=== PATIENT | female | born 1935 | race Caucasian/White ===

== ENCOUNTER 2016-09-11 10:34 | Day surgery (SDC) | payer MEDICARE ==
[2016-09-11] VITALS (9 sets, daily range): BP systolic 103–151; BP diastolic 42–76; PULSE 60–77; RESP 6–20; O2SAT 92–96
[~2016-09-11] VITALS: Ht 152.4 cm; Wt 86.7 kg
[~2016-09-11 10:34] MED LIST: ALBU18HF INH; ALBU2.5V4 INHALATION; ALEN70TA2 PO; CALC-1051 PO; CYCL10TA9 PO; ESCI10TA52 PO; FEBU40TA PO; FLUT1DIS5 IH; FURO-129 PO; GABA100C PO; LISI10TA PO; Lactated Ringer's 1,000 ML IV SCH; MULT-1018 PO; OMEP40CA36 PO; POTA10TA12 PO; TIOT18CA3 IH; WARF6TAB6 PO; [UNRECOGNIZED DRUG - CODE]
[2016-09-11] MEDS ORDERED: Propofol 10,000 mCg/mL 20 mL Inj ONE (10:35)
[2016-09-11] MEDS ORDERED: Dexamethasone 4 mg/mL Inj ONE (10:35)
[2016-09-11] MEDS ORDERED: fentaNYL-PF 50 mCg/mL 2 mL Inj ONE (10:35)
[2016-09-11] MEDS ORDERED: Ondansetron 2 mg/mL 2 mL Inj ONE (10:35)
[2016-09-11] MEDS ORDERED: Lactated Ringer's 1,000 ML IV ONE (11:33)
[2016-09-11] MEDS ORDERED: HYDROcodone-APAP 5-325 mg Tablet PO PRN (14:05)
[2016-09-11] MEDS ORDERED: Lidocaine 1%-Epi 1:100,000 20 mL Inj NERVEBLOCK ONE (14:21)
[2016-09-11] MEDS ORDERED: Lactated Ringer's 500 ML IV PRN (14:26)
[2016-09-11] MEDS ORDERED: Lactated Ringer's 1,000 ML IV SCH (14:26)
[2016-09-11] MEDS ORDERED: Phenylephrine 10,000 mCg/mL Inj IVPUSH PRN (14:30)
[2016-09-11] MEDS ORDERED: MetoCLOpramide 5 mg/mL 2 mL Inj IVPUSH PRN (14:30)
[2016-09-11] MEDS ORDERED: EPHEDrine Sulfate 50 mg/mL Inj IVPUSH PRN (14:30)
[2016-09-11] MEDS ORDERED: HYDROmorphone 1 mg/mL Inj IVPUSH PRN (14:30)
[2016-09-11] MEDS ORDERED: Ondansetron 2 mg/mL 2 mL Inj IVPUSH PRN (14:30)
[2016-09-11] MEDS ORDERED: fentaNYL-PF 50 mCg/mL 2 mL Inj IVPUSH PRN (14:30)
[2016-09-11] MEDS ORDERED: Dexamethasone 4 mg/mL Inj IVPUSH PRN (14:30)
--- NOTE | 2016-09-12 04:42 | OP ---
[address] [address] OPERATIVE REPORT PATIENT: CRISTIAN ISAACS : 1935 MR#: [id number] ADMIT: 09/11/2016 JOB ID: [id number] DATE OF SURGERY: 09/11/2016 PREOPERATIVE DIAGNOSIS(ES): Left wrist versus ganglion. POSTOPERATIVE DIAGNOSIS(ES): Left wrist ulnar ganglion. PROCEDURES: Excision of left wrist ganglion. SURGEON: Compa Denny D.O. ANESTHESIA: General. HISTORY: The patient is pleasant 80-year-old female who had a longstanding history of a large left ulnar sided wrist mass. I discussed with the patient that it was likely a ganglion as it did transilluminate and had characteristics of a ganglion. As the mass was progressively enlarging she opted to have this excised. She understood the risks include, but not limited to, neurovascular injury, tendon injury, infection, failure to resolve the mass, recurrence, stiffness, persistent pain which may require further intervention. The patient had all questions answered. Consent was signed and placed in chart. PROCEDURE IN DETAIL: The patient was brought to the operative suite and placed supine on the operating table. Surgical time-out was performed. Everyone in the room was in agreement. After appropriate anesthesia was obtained, a left upper arm tourniquet was applied and the left upper extremity was prepped and draped in a sterile fashion. Left upper extremity was then exsanguinated and tourniquet inflated to 250 mmHg. A longitudinal incision was made along the ulnar aspect of the wrist overlying the mass. Dissection was carried down to a ganglion. The ganglion was freed up from the surrounding soft tissues taking care to protect any dorsal ulnar sensory nerve branches. The ganglion was dissected down to its stalk and excised in its entirety. Copious irrigation was then performed, followed by closure of the skin with a running 5-0 nylon. The patient was then placed in a well-padded well-molded volar resting splint. ESTIMATED BLOOD LOSS: Less than 1 cc. COMPLICATIONS: None. DISPOSITION: The patient tolerated the procedure well. Anesthesia was reversed and the patient was transferred back to recovery. SPECIMENS: Left ulnar wrist ganglion that was disposed of. POSTOPERATIVE PLAN: The patient follow up in my office in two weeks. We will remove the patient's sutures as well as a splint and start working on range of motion and scar mobilization at that time.
--- NOTE | 2016-09-12 09:41 | PCM.HPANE ---
Patient Data Surgeon Admitting Provider: Attending Provider:Compa Denny DO Primary Care Physician:Melissa Cortez Other Provider:Caesar Sampson Anesthesia Reason for Visit Left Wrist Ganglion Ht/WT & BMI Height (Feet): 5 Weight (Kilograms): 86.72 Body Mass Index 37.00 Allergies Coded Allergies: Penicillins (Verified Allergy, Severe, 01/02/09) Past Anesthesia History Anesthesia History: Denies:: Abnormal Airway, Anesthesia Reactions, Difficult Intubation, Fam Anesthesia Reaction Diabetes History Hx Diabetes?: No (hgb A1c 5.9 on 08/2016) MRSA MRSA: No Medications Blood Thinner: Coumadin Hypertension Medication: Yes Home Meds Incl Beta Libzeth: No Reported Medications Warfarin Sodium 6 Mg Tablet6 Mg PO DAILY 30 Days 09/08/16 Febuxostat (Uloric)40 Mg Fqonyu01 Mg PO DAILY 09/08/16 Tiotropium [place] (Spiriva)18 Mcg Cap.w.dev18 Mcg IH DAILY #1 PKG Ref 0 09/08/16 [slow-mag] No Conflict Check71.5 Mg DAILY 09/08/16 Potassium Chloride ER 10 Meq Ayheeq42 Meq PO DAILY Ref 0 TAKE WITH FOOD 09/08/16 Omeprazole 40 Mg Capsule.dr40 Mg PO BID Ref 0 09/08/16 Multivitamin (Multi Vitamin Daily)1 Each Tablet1 Each PO DAILY 30 Days Ref 0 09/08/16 Lisinopril 10 Mg Uelqnb21 Mg PO DAILY 30 Days Ref 0 09/08/16 Furosemide (Lasix)20 Mg Wsalen23 Mg PO DAILY 30 Days Ref 0 09/08/16 Gabapentin (Neurontin)100 Mg Fgozofs973-350 Mg PO HS PRN For Pain Ref 0 09/08/16 Alendronate Sodium (Fosamax)70 Mg Nxxjjb78 Mg PO WEEKLY 30 Days Ref 0 09/08/16 Escitalopram Oxalate 10 Mg Dlhphl04 Mg PO DAILY #30 TABLET Ref 0 09/08/16 Cyclobenzaprine 10 Mg Zzybot12 Mg PO HS PRN Spasm Ref 0 09/08/16 Calcium Carbonate/Vitamin D3 (Calcium 500-Vit D3 600 Tablet)500 Mg-600 Tablet1 Each PO DAILY 09/08/16 Albuterol Sulfate (Ventolin HFA Inhaler)200 Puff/18 Gm Inhaler2 Puff INH Q4 PRN For Wheezing #1 INHALER Ref 0 09/08/16 Albuterol Neb Soln 2.5 Mg/3 Ml Vial.neb2.5 Mg INHALATION Q4H PRN For Shortness of Breath Ref 0 09/08/16 Fluticasone/Salmeterol (Advair 500-50 Diskus)1 Each Disk.w.dev1 Puff IH BID #1 DISK Ref 0 09/08/16 Discontinued Reported Medications Flutic/Salmet-Expunged Drug, Do Not Renew! (Advair 500/50-Expunged Drug, Do Not Renew!)60 Puff Disk60 Puff IH DAILY 01/02/10 Tiotropium Br-Expunged Drug, Do Not Renew! (Spiriva-Expunged Drug, Do Not Renew! )18 Mcg/Puff Pack Daily 01/02/10 [albturol ih] No Conflict Check Q3-4H Prn 01/02/10 History History of ENT Problems?: No HEENT History: Positive for:: Cataracts (bilateral ) Hearing Problem Denies:: Abnormal Airway Difficult Intubation Dysphagia Glaucoma Sinus Problem Denture Type: Full- Upper Full- Lower Teeth Condition: Within Normal Limits Hx of Heart Problems?: Yes Cardiovascular History: Positive for:: Hypertension Thrombophlebitis (PE ) Denies:: AICD Chest Pain Heart Murmur Irregular Heartbeat Pacemaker Hx of Respiratory Problem?: Yes Respiratory History: Positive for:: Asthma Dyspnea Use of C-PAP Machine Use of Inhalers / NEBS Denies:: COPD Chest Surgery Emphysema Hemoptysis Oxygen Administration Pneumonia Tuberculosis Hx Neurologic Problems?: Yes Neurological History: Positive for:: Headaches Denies:: Alzheimer's Disease CVA Dementia Dizziness Multiple Sclerosis Parkinson's Disease Seizures Hx of GI Problems?: No Hx of Problems?: No Genitourinary History: Denies:: Kidney Stones Urinary Tract Infection Female Hx: Positive for:: Problems with Breasts? (partial bilateral mastectomies 2002) Denies:: Currently (hysterectomy) Endometriosis Pelvic Inflammatory Skin History: Denies:: History Skin Disorders? Pressure Ulcers Hx Musculoskeletal Problems?: Yes Musculoskeletal History: Positive for:: Back Injury (hx of injections) Fibromyalgia Musculoskeletal Trauma (left wrist ganglion current admission problem) Osteoarthritis (right shoulder) Denies:: Degenerative Joint Joint Replacement Myasthenia Gravis Systemic Lupus Hx of Psycho/Social Problems?: No Psycho Social History: Denies:: Anxiety Bipolar Disorder Hx Depression Suicide Attempt Hx Surgeries?: Yes (hysterectomy, reema mastectomies) Hx Any Other Health Problems?: Yes Other History: Positive for:: Cancer (breast) Denies:: Hospitalization Thyroid Disease History Blood Transfusions: Positive for:: Accept Blood Products? Denies:: Blood Transfuse Reaction Blood Transfusions Hx Diabetes: No (hgb A1c 5.9 on 08/2016) Hx Alcohol Use: NoHx Substance Use: NoHave You Smoked inLast 12 mo: No Stop/Bang S-Snoring: Do You Snore Loudly: No T-Tired: feel tired, fatigued: Yes O-Obsered: Observed not breath: No P-Blood Pressure: treated: Yes B- Body Mass Index > 35 kg/m2: Yes A- Age over 50: Yes N- Neck Large Circumference: No G- Gender Male: No SARABJIT Total Score: 4 Risk Assessment Category Category 1A: Patient has history of documented sleep apnea, and HAS NOT received any narcotic, sedative or anesthesia administration during this stay. Category 1B: Patient has history of documented sleep apnea, and HAS received any narcotic , sedative or anesthesia administration during this stay Category 2: Patient has SUSPECTED Obstructive Sleep Apnea, and HAS received any narcotic , sedative or anesthesia administration during this stay. Category 3: Patient has SUSPECTED Obstructive Sleep Apnea and HAS NOT received narcotic, sedative or anesthesia administration during this stay. Category 4: Outpatient in Procedural Areas with known sleep apnea or who screen positive for High Risk via the STOP/BANG questionnaire. Exam Exam General Appearance: Alert, Oriented X3, Cooperative, No Acute Distress HEENT/AIRWAY: MP 2 Lungs: Clear to Auscultation Heart: Exam Unremarkable Plan Impression Patient chart reviewed, patient interviewed and anesthestic plan with risks, benefits, and alternatives discussed, and informed consent obtained. ASA Physical Status: ASA2 Mod Systemic Disease Anesthetic Plan: GA Bene/Risks/Altern/Consents: Yes HP Complete Prior to Induction: Yes Hunter Wiley MD Sep 11, 2016 08:44
--- NOTE | 2016-09-12 09:43 | PCM.ANEP1 ---
Post Anesthesia PACU Phase 1 Assessment Anesthetic Administered: GA Level of Alertness: Awake, talking RODRIGUEZ's with Equal Strength: Yes Pain: No Nausea or Vomiting: No CV Function & Hydration Stable: Yes Airway Device: Oxygen Delivery: Room Air Lungs: Clear to Auscultation Dermatome Level: Full Sensation PACU Phase 2 Assessment Complications: No Patient Instructions Provided: N/A Hunter Wiley MD Sep 12, 2016 09:43
== END 2016-09-11 23:59 | disposition home or self-care (01) ==
LOC: SAS 10:34
PROVIDERS: ATTEND Orthopaedic Surgery
PROC: 0RBP0ZZ Excision of Left Wrist Joint, Open Approach (ICD-10-PCS; principal; 2016-09-11 12:15)
DX: M67.432 Ganglion, left wrist (principal); G47.33 Obstructive sleep apnea (adult) (pediatric); J44.9 Chronic obstructive pulmonary disease, unspecified; M79.7 Fibromyalgia; J45.909 Unspecified asthma, uncomplicated; I10 Essential (primary) hypertension; Z86.711 Personal history of pulmonary embolism; Z79.01 Long term (current) use of anticoagulants; Z85.3 Personal history of malignant neoplasm of breast
CPT/HCPCS: 25111; J1100; J2405; J3010; J7120

== ENCOUNTER 2016-10-18 14:49 | Emergency (ER) | payer MEDICARE ==
[~2016-10-18] VITALS: Ht 154.9 cm; Wt 79.5 kg
[~2016-10-18 14:49] MED LIST changes: -Lactated Ringer's 1,000 ML IV SCH
[2016-10-18 14:51] VITALS: BP 115/61; PULSE 54; RESP 18; O2SAT 95
--- NOTE | 2016-10-18 15:09 | ED.REPORT ---
HPI-NVD Date of Service Oct 18, 2016 ED Provider: Dr. Estevez Pt is a 81 year old female with a hx of HTN who presents to the ED with concerns for nausea, vomiting and diarrhea for the past three weeks. She reports that she has had extensive work-ups for these symptoms, including a CT scan and stool studies, with no conclusive findings. Pt states that she has had no symptomatic relief with any medications that she has been prescribed. She reports that she has been unable to eat for the last day, and last vomited last night. She denies noticing any blood in her emesis or diarrhea, or any other concerning symptoms. She denies any recent antibiotics, or ever having experienced symptoms like these in the past. Nursing Notes Stated Complaint: DIARRHEA,VOMITING,DEHYDRATION Chief Complaint: Female Abdominal Pain Nursing Notes Reviewed: Yes Allergies: Coded Allergies: Penicillins (Verified Allergy, Severe, 10/18/16) Scheduled ([slow-mag]) 71.5 MG DAILY Alendronate Sodium (Fosamax) 70 Mg Tablet 70 MG PO WEEKLY Calcium Carbonate/Vitamin D3 (Calcium 500-Vit D3 600 Tablet) 500 Mg-600 Tablet 1 EACH PO DAILY Escitalopram Oxalate (Escitalopram Oxalate) 10 Mg Tablet 10 MG PO DAILY Febuxostat (Uloric) 40 Mg Tablet 40 MG PO DAILY Fluticasone/Salmeterol (Advair 500-50 Diskus) 1 Each Disk.w.dev 1 PUFF IH BID Furosemide (Lasix) 20 Mg Tablet 20 MG PO DAILY Lisinopril (Lisinopril) 10 Mg Tablet 10 MG PO DAILY Multivitamin (Multi Vitamin Daily) 1 Each Tablet 1 EACH PO DAILY Omeprazole (Omeprazole) 40 Mg Capsule.dr 40 MG PO BID Potassium Chloride ER (Potassium Chloride ER) 10 Meq Tablet 10 MEQ PO DAILY TAKE WITH FOOD Tiotropium [place] (Spiriva) 18 Mcg Cap.w.dev 18 MCG IH DAILY Warfarin Sodium (Warfarin Sodium) 6 Mg Tablet 6 MG PO DAILY Scheduled PRN Albuterol Neb Soln (Albuterol Neb Soln) 2.5 Mg/3 Ml Vial.neb 2.5 MG INHALATION Q4H PRN PRN For Shortness of Breath Albuterol Sulfate (Ventolin HFA Inhaler) 200 Puff/18 Gm Inhaler 2 PUFF INH Q4 PRN PRN For Wheezing Cyclobenzaprine (Cyclobenzaprine) 10 Mg Tablet 20 MG PO HS PRN PRN Spasm Gabapentin (Neurontin) 100 Mg Capsule 200-400 MG PO HS PRN PRN For Pain General Time Seen by MD: 15:08 Chief Complaint Nausea, Vomiting, Diarrhea Hx Obtained From: Patient Arrived By: Walk-in Onset Occurred: More than a week ago... (3 weeks) Symptom Duration: Since onset Location: : Diffuse Severity: Current: Mild Severity: Maximum: Moderate Similar Sx Previous: Yes Past Medical History Past Medical History Reports: Hypertension Ambulatory Status Independent Review of Systems Constitutional: Denies: Chills, Fever, Malaise, Weakness - generalized GI: Reports: Abdominal pain, Diarrhea, Nausea, Vomiting, Denies: Constipation Skin: Denies Diaphoresis, Denies Swelling Neurologic: Denies: Abnormal movement, Change LOC, Dizziness, Headache, Syncope , Weakness Complete sys rev & neg: except as marked. Physical Exam Initial Vital Signs Vital Signs (First) Date Time Temp Pulse Resp B/P Pulse Ox O2 Delivery O2 Flow Rate FiO2 10/18/16 14:51 37.0 54 18 115/61 95 Room Air Initial VS: Reviewed Head / Eyes: Atraumatic, Normocephalic, PERRL ENT: Mucous membranes moist, Conjunctiva normal, No scleral icterus Neck: Supple, Non-tender, Full range of motion Respiratory: Breath sounds normal, Clear to auscultation, No respiratory distress Cardiovascular: Regular rate & rhythm, Heart sounds normal, Intact distal pulses Skin: Warm, Dry, No cyanosis Neurologic: Alert, Oriented, Nonfocal General/Constitutional: Awake, Alert, Well appearing, Cooperative Abdomen: Soft Interpretation & Diagnostics Lab Results Interpretation Result Diagram: 10/18/16 1525 10/18/16 1525 Test 10/18/16 15:25 10/18/16 17:00 White Blood Count 6.5th/mm3 (3.8-10.1) Red Blood Count 4.35mil/mm3 (3.90-5.20) Hemoglobin 13.7g/dL (12.0-15.6) Hematocrit 39.5% (35.0-46.0) Mean Corpuscular Volume 90.8fL (81-100) Mean Corpuscular Hemoglobin 31.5pg (27.0-35.0) Mean Corpuscular Hemoglobin Concent 34.7% (32.0-37.0) Red Cell Distribution Width 14.0% (12.3-15.4) Platelet Count 161bil/L (150-400) Neutrophils (%) (Auto) 73.3% (40-74) Lymphocytes (%) (Auto) 17.1% (14-46) Monocytes (%) (Auto) 8.3% (4-12) Eosinophils (%) (Auto) 0.8% (0-5) Basophils (%) (Auto) 0.2% (0-3) Sodium Level 129mEq/L (134-144) Potassium Level 3.7mEq/L (3.5-5.2) Chloride Level 98mEq/L (97-108) Carbon Dioxide Level 17mmol/L (18-29) Blood Urea Nitrogen 13mg/dL (8-27) Creatinine 0.88mg/dL (0.57-1.00) Estimat Glomerular Filtration Rate 89mL/min (>59) Glucose Level 137mg/dL (60-99) Calcium Level 7.8mg/dL (8.5-10.1) Magnesium Level 1.5mg/dL (1.6-2.6) Total Bilirubin 0.5mg/dL (0.0-1.2) Aspartate Amino Transf (AST/SGOT) 26U/L (0-50) Alanine Aminotransferase (ALT/SGPT) 22U/L (0-32) Alkaline Phosphatase 57U/L (25-165) Total Protein 6.1g/dL (6.4-8.4) Albumin 3.8g/dL (3.4-5.0) Lipase 23U/L (13-60) Hold Newell Top Tube Received (Received) Hold Urine Received (Received) Lab Results Interpretation: Abd CT 10/08/2016: IMPRESSION: 1. No acute intra-abdominal findings. The appendix is not visualized; however there are no ancillary findings to suggest acute appendicitis. 2. Hepatic steatosis. 3. Arterial atherosclerosis. 4. Sclerotic appearance of the bilateral pubic bones at the symphysis pubis. The significance of this finding is unclear. Although this may be related to degenerative changes, infection or bony metastasis could be considered in the differential. No prior comparisons are available to determine the acuity of this finding. If further characterization is warranted, consider non-emergent bone scan or MRI of the pelvis with and without contrast. Dictated by: Jane Kan M.D. on 10/08/2016 at 16:27 Negative stool PCR Re-Eval/Medical Decision Med Decision/Clinical Course PCR bio fire test of the stool a few days ago is negative for all pathogens. No significant dehydration here today. I recommend follow up with PCP next week to discuss further evaluation. Imodium as needed. Source of Hx: Old records Re-Evaluation/Progress : Time of Eval: 17:47 Re-Evaluation/Progress Note: Pt is rechecked and informed of her lab results and the plan to discharge her at this time. She understands and agrees, all questions are addressed. Counseled Regarding: Diagnosis, Lab results, When/why to return to ED Discharge & Departure Impression: Primary Impression: Chronic diarrhea Additional Impression: Mild dehydration Disposition: Home Discharge Condition All VS Reviewed: Yes Condition: Stable Patient Instructions: Chronic Diarrhea (ED) Additional Instructions: No dangerous condition is discovered. You do have a moderate degree of dehydration. I recommend oral fluids frequently throughout the day. Use Imodium (loperamide) 2 mg with every diarrheal stool up to 16 mg of Imodium daily. Follow-up with primary care early next week to arrange gastroenterology follow up. Referrals: Melissa Cortez (PCP) Silas Attestation Portions of this note were transcribed by Ritika Rosales. I, Dr. Estevez personally performed the history, physical exam and medical decision-making; I reviewed and confirmed the accuracy of the information in the transcribed note. Signed by: Silas Lu, 10/18/2016 17:47 copies to: Melissa Cortez Kirk H MD Oct 18, 2016 15:09 NASRIN ROSALES Oct 18, 2016 15:16
[2016-10-18] MEDS ORDERED: 0.9% Sodium Chloride 1,000 ML IV ONE (15:12)
[2016-10-18] MEDS ORDERED: Ondansetron 2 mg/mL 2 mL Inj IVPUSH PRN (15:15)
[2016-10-18 16:09] LABS: BASOPHILS % (AUTO) 0.2 % (0-3); EOSINOPHILS % (AUTO) 0.8 % (0-5); MONOCYTES % (AUTO) 8.3 % (4-12); Mean Corpuscular Hemoglobin 31.5 pg (27.0-35.0); Mean Corpuscular Volume 90.8 fL (81-100); NEUTROPHILS % (AUTO) 73.3 % (40-74); Platelet Count 161 bil/L (150-400)
[2016-10-18 16:11] VITALS: BP 121/68; PULSE 52; RESP 15; O2SAT 95
[2016-10-18 16:18] LABS: Magnesium 1.5 mg/dL (1.6-2.6)
[2016-10-18 16:55] VITALS: BP 150/73; PULSE 55; O2SAT 96
[2016-10-18 16:56] VITALS: BP 137/69; PULSE 65; O2SAT 97
[2016-10-18] MEDS ORDERED: LOPE2CAP PO (18:24)
[2016-10-18 18:29] VITALS: BP 137/69; PULSE 65; RESP 15; O2SAT 97
== END 2016-10-18 18:33 | disposition home or self-care (01) ==
LOC: SED 14:49
DX: R19.7 Diarrhea, unspecified (principal); E86.0 Dehydration; I10 Essential (primary) hypertension; Z88.0 Allergy status to penicillin; Z79.01 Long term (current) use of anticoagulants
CPT/HCPCS: 36415; 80053; 83690; 83735; 85025; 96360; 99284; J7030

== ENCOUNTER 2016-10-28 14:23 | Emergency (ER) | payer MEDICARE ==
[~2016-10-28] VITALS: Ht 154.9 cm; Wt 79.5 kg
[~2016-10-28 14:23] MED LIST changes: +LOPE2CAP PO
[2016-10-28 14:31] VITALS: BP 185/62; PULSE 57; RESP 15; O2SAT 91
[2016-10-28] MEDS ORDERED: Ondansetron 2 mg/mL 2 mL Inj IVPUSH PRN (14:50)
--- NOTE | 2016-10-28 14:57 | ED.REPORT ---
HPI-Trauma Minor / Fall Date of Service Oct 28, 2016 ED Provider: MohitBj Omero NORMAN Pt is a 81 y/o female anticoagulated on Warfarin w/ a hx of congenital coagulopathy, HTN, CHF, presenting to the ED due to head injury which occurred 2 days ago. The patient was standing on a step stool trying to put something on her fridge and the stool fell out from under her causing her to fall and hit her head on the stove. After the incident she experienced headache, dizziness, and quickly resolved vision changes. She was seen by a family member right after the incident who recommended she come to the ED although she did not see it to be necessary. She went to an INR clinic today and her INR was 2.2 or 2.3. The staff at the INR clinic told her to come to the ED for evaluation of her head injury. Her symptoms at current time are headache, pressure behind the eye , and diffuse neck pain (worse on R lateral). Pt denies any change in upper extremity numbness, speech or vision changes currently, chest pain, abdominal pain. She has coincidentally been having diarrhea for the past 4 weeks which has been worked up previously. Nursing Notes Stated Complaint: FELL, HIT HEAD/ON COUMADIN Chief Complaint: Head, Face, Neck Trauma Nursing Notes Reviewed: Yes Allergies: Coded Allergies: Penicillins (Verified Allergy, Severe, 10/18/16) Scheduled ([slow-mag]) 71.5 MG DAILY Alendronate Sodium (Fosamax) 70 Mg Tablet 70 MG PO WEEKLY Calcium Carbonate/Vitamin D3 (Calcium 500-Vit D3 600 Tablet) 500 Mg-600 Tablet 1 EACH PO DAILY Escitalopram Oxalate (Escitalopram Oxalate) 10 Mg Tablet 10 MG PO DAILY Febuxostat (Uloric) 40 Mg Tablet 40 MG PO DAILY Fluticasone/Salmeterol (Advair 500-50 Diskus) 1 Each Disk.w.dev 1 PUFF IH BID Furosemide (Lasix) 20 Mg Tablet 20 MG PO DAILY Lisinopril (Lisinopril) 10 Mg Tablet 10 MG PO DAILY Multivitamin (Multi Vitamin Daily) 1 Each Tablet 1 EACH PO DAILY Omeprazole (Omeprazole) 40 Mg Capsule.dr 40 MG PO BID Potassium Chloride ER (Potassium Chloride ER) 10 Meq Tablet 10 MEQ PO DAILY TAKE WITH FOOD Tiotropium [place] (Spiriva) 18 Mcg Cap.w.dev 18 MCG IH DAILY Warfarin Sodium (Warfarin Sodium) 6 Mg Tablet 6 MG PO DAILY Scheduled PRN Albuterol Neb Soln (Albuterol Neb Soln) 2.5 Mg/3 Ml Vial.neb 2.5 MG INHALATION Q4H PRN PRN For Shortness of Breath Albuterol Sulfate (Ventolin HFA Inhaler) 200 Puff/18 Gm Inhaler 2 PUFF INH Q4 PRN PRN For Wheezing Cyclobenzaprine (Cyclobenzaprine) 10 Mg Tablet 20 MG PO HS PRN PRN Spasm Gabapentin (Neurontin) 100 Mg Capsule 200-400 MG PO HS PRN PRN For Pain Loperamide (Loperamide) 2 Mg Capsule 2 MG PO DIRECTED PRN PRN For Diarrhea or Loose Stool Take 2 milligrams with each diarrheal stool. Maximum dose per day 16 mg. 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 Cardiovascular: Denies: Chest pain GI: Denies: Abdominal pain, Nausea, Vomiting Physical Exam Initial Vital Signs Vital Signs (First) Date Time Temp Pulse Resp B/P Pulse Ox O2 Delivery O2 Flow Rate FiO2 10/28/16 14:31 36 57 15 185/62 91 Room Air Initial VS: Reviewed, Vital signs abnormal General/Constitutional: Awake, Alert, No acute distress, Well appearing, Cooperative, Not toxic appearing Trauma - Neck Specific: Positive: Immobilized - C Collar Mild tenderness of C-spine Head / Eyes: Normocephalic, PERRL Soft tissue swelling over the left occiput ENT: Atraumatic, Airway patent, Mucous membranes moist Respiratory / Chest: Breath sounds NL, Breath sounds = bilat, No respiratory distress, No rales, No rhonchi, No wheezing Cardiovascular: Regular rhythm, Heart sounds NL, No murmurs Heart Rate / Rhythm: Positive: Bradycardia (mild) Abdomen: Atraumatic, Soft, Non-tender Back: Full range of motion, Painless range of motion, No midline vertebral tend Upper Extremity / MS: Atraumatic, Full range of motion, No deformity, Neurologic intact, Vascular intact Lower Extremity / Pelvis / MS: No deformity, Neurologic intact, Vascular intact Mild tenderness over left greater trochanter No foreshortening or external rotation Skin: Warm, Dry, Intact Neurologic: Oriented X3, Speech NL, No motor deficits, No sensory deficits, CN II - XII intact, Cerebellar NL, Memory NL Psychiatric: Affect NL, Mood NL Interpretation & Diagnostics Lab Results Interpretation Result Diagram: 10/28/16 1520 10/28/16 1520 Test 10/28/16 15:20 White Blood Count 5.0th/mm3 (3.8-10.1) Red Blood Count 4.14mil/mm3 (3.90-5.20) Hemoglobin 13.1g/dL (12.0-15.6) Hematocrit 38.4% (35.0-46.0) Mean Corpuscular Volume 92.8fL (81-100) Mean Corpuscular Hemoglobin 31.6pg (27.0-35.0) Mean Corpuscular Hemoglobin Concent 34.1% (32.0-37.0) Red Cell Distribution Width 14.8% (12.3-15.4) Platelet Count 161bil/L (150-400) Neutrophils (%) (Auto) 64.8% (40-74) Lymphocytes (%) (Auto) 24.6% (14-46) Monocytes (%) (Auto) 9.0% (4-12) Eosinophils (%) (Auto) 1.2% (0-5) Basophils (%) (Auto) 0.2% (0-3) Prothrombin Time 21.8sec (8.1-12.5) Prothromb Time International Ratio 2.01ratio Activated Partial Thromboplast Time 31.2sec (22.8-33.0) Sodium Level 139mEq/L (134-144) Potassium Level 3.7mEq/L (3.5-5.2) Chloride Level 106mEq/L (97-108) Carbon Dioxide Level 19mmol/L (18-29) Blood Urea Nitrogen 17mg/dL (8-27) Creatinine 0.90mg/dL (0.57-1.00) Estimat Glomerular Filtration Rate 87mL/min (>59) Glucose Level 96mg/dL (60-99) Calcium Level 8.8mg/dL (8.5-10.1) Total Bilirubin 0.3mg/dL (0.0-1.2) Aspartate Amino Transf (AST/SGOT) 23U/L (0-50) Alanine Aminotransferase (ALT/SGPT) 19U/L (0-32) Alkaline Phosphatase 56U/L (25-165) Troponin T < 0.010ug/L (0.0-0.011) Total Protein 6.5g/dL (6.4-8.4) Albumin 3.9g/dL (3.4-5.0) ECG Interpretation ECG Interpretation: Sinus rhythm rate 51 Inverted T wave in lead III No prior available for comparison Time: 15:15 Interpreted by: ED physician Normal ECG Interpretation: No acute ischemic changes X-Ray Chest Interpretation Chest Xray Interpretation: IMPRESSION: Negative chest. No acute cardiopulmonary process is evident. Dictated by: Raymundo Armijo M.D. on 10/28/2016 at 14:30 Approved by: Raymundo Armijo M.D. on 10/28/2016 at 14:31 View: Portable, 1 view Interpretation / Wet Read by: Interpret - Radiologist X-Ray Interpretation Xray Interpretation: IMPRESSION: 1. No acute fracture of the left hip. 2. Subtle sclerosis of the superior left femoral head may be degenerative. However, this does raise the suspicion for early avascular necrosis. Please consider obtaining MRI of the left hip for further evaluation. This may be performed on a nonemergent basis. Dictated by: Raymundo Armijo M.D. on 10/28/2016 at 14:32 Approved by: Raymundo Armijo M.D. on 10/28/2016 at 14:34 X-Ray Ordered: Pelvis, Hip left Interpretation / Wet Read by: Interpret - Radiologist CT Head Interpretation IMPRESSION: Normal for age, no trauma found. No intracranial hemorrhage identified. Dictated by: Rey Echavarria M.D. on 10/28/2016 at 15:54 Approved by: Rey Echavarria M.D. on 10/28/2016 at 15:54 Study: Head CT no contrast Interpretation / Wet Read by: Interpret - Radiologist CT C-Spine Interpretation IMPRESSION: No trauma found. Chronic moderate degenerative disc disease over C5-6 and C6-7 with associated mild/moderate spinal stenosis at that level. No epidural or subdural hemorrhage within the thecal sac is seen. Dictated by: Rey Echavarria M.D. on 10/28/2016 at 15:54 Approved by: Rey Echavarria M.D. on 10/28/2016 at 15:56 Study type: CT no contrast Interpretation / Wet Read by: Interpret - Radiologist Re-Eval/Medical Decision Med Decision/Clinical Course 81-year-old female who is anticoagulated on warfarin presents 2 days after a fall where she hit her head with a significant blow and has been having some concerning symptoms, including dizziness, vision changes, and headache, as well as left hip pain and neck pain. Luckily here her imaging appeared unremarkable. I discussed with her that her symptoms are likely related to a concussion and that if they worsen she needs to return immediately for further/ repeat evaluation. I also discussed the signs and symptoms of concussion and she understands the importance of follow-up with her PCP later this week. Source of Hx: Old records Re-Evaluation/Progress : Time of Eval: 16:55 Patient Status: Condition improved Evaluation: Mental status normal, Neurologic nonfocal Re-Evaluation/Progress Note: Pt rechecked. Informed pt of plan for discharge. Pt understands and agrees with plan for discharge. F/U instructions and RTER warnings given. All questions addressed. Counseled Regarding: Diagnosis, Lab results, Need for follow-up, When/why to return to ED Discharge & Departure Impression: Primary Impression: Head injury Encounter type: initial encounter Qualified Code: S09.90XA - Unspecified injury of head, initial encounter Additional Impressions: Anticoagulated on warfarin Fall Encounter type: initial encounter Qualified Code: W19.XXXA - Unspecified fall, initial encounter Concussion Encounter type: initial encounter Loss of consciousness presence/duration: without LOC Qualified Code: S06.0X0A - Concussion without loss of consciousness, initial encounter Bony sclerosis Disposition: Home Discharge Condition All VS Reviewed: Yes Condition: Stable Patient Instructions: Concussion (ED), Head Injury (ED) Additional Instructions: The head and neck CT scans were reassuring. No signs of fracture or bleeding. The chest and pelvis x-ray showed no sign of fracture. You do have some sclerosis of the left hip. Return to the emergency department if you experience any new or worsening symptoms. Follow-up with your primary care doctor in 1-2 weeks for a recheck. Referrals: Melissa Cortez (PCP) Scribe Attestation Portions of this note were transcribed by Clemente Diaz. I, Dr. Rueda personally performed the history, physical exam and medical decision-making; I reviewed and confirmed the accuracy of the information in the transcribed note. copies to: Melissa Cortez Gary R DO Oct 28, 2016 14:57 CLEMENTE DIAZ Oct 28, 2016 15:04
[2016-10-28 15:24] LABS: BASOPHILS % (AUTO) 0.2 % (0-3); EOSINOPHILS % (AUTO) 1.2 % (0-5); Mean Corpuscular Hemoglobin 31.6 pg (27.0-35.0); Mean Corpuscular Volume 92.8 fL (81-100); NEUTROPHILS % (AUTO) 64.8 % (40-74); Platelet Count 161 bil/L (150-400)
--- NOTE | 2016-10-28 15:33 | DRSVH ---
PROCEDURE: X-RAY CHEST ONE VIEW, PORTABLE ([id number]) INDICATIONS: fall TECHNIQUE: One view of the chest was acquired. COMPARISON: [facility], CR, XR CHEST 2VW, 09/10/2015, 13:47. FINDINGS: Surgical changes and devices: Postoperative changes are present overlying the right breast. Lungs and pleura: The aeration of the lungs appears to be within normal limits. No focal consolidati on, effusion, or pneumothorax is identified. There may be scarring within the lung apices and costop hrenic angles. Mediastinum: Mediastinal contours appear normal. Heart size is normal. There is aortic atheroscler osis. Bones and chest wall: No suspicious bony lesions. No definite displaced rib fractures are appreciat ed. Overlying soft tissues appear unremarkable. IMPRESSION: Negative chest. No acute cardiopulmonary process is evident. Dictated by: Raymundo Armijo M.D. on 10/28/2016 at 14:30 Approved by: Raymundo Armijo M.D. on 10/28/2016 at 14:31
--- NOTE | 2016-10-28 15:36 | DRSVH ---
PROCEDURE: X-RAY PELVIS W/LAT HIP (LT) ([id number]) INDICATIONS: fall, L hip pain TECHNIQUE: AP pelvis with lateral view(s) of the left hip(s). COMPARISON: [facility], CT, CT ABD PELVIS W CON, 10/08/2016, 16:11. FINDINGS: Bones: No displaced hip fracture is evident. Subtle subarticular sclerosis along the superior margin of the femoral head is present, which is much better appreciated on the CT dated 10/08/16. Articular surface offset is identified. Mild to moderate degenerative changes are noted involving the bilatera l hips, pubis symphysis, sacroiliac joints, and lower lumbar spine. Soft tissues: The visualized bowel gas pattern is normal. Subcutaneous calcifications overlying the bilateral gluteal regions are noted. Clips are seen within the right upper medial thigh region. Sc attered vascular calcifications within the pelvis are noted. IMPRESSION: 1. No acute fracture of the left hip. 2. Subtle sclerosis of the superior left femoral head may be degenerative. However, this does raise the suspicion for early avascular necrosis. Please consider obtaining MRI of the left hip for furth er evaluation. This may be performed on a nonemergent basis. Dictated by: Raymundo Armijo M.D. on 10/28/2016 at 14:32 Approved by: Raymundo Armijo M.D. on 10/28/2016 at 14:34
[2016-10-28 15:38] LABS: INR 2.01 ratio
[2016-10-28 15:45] LABS: TROPONIN T < 0.010 ug/L (0.0-0.011)
--- NOTE | 2016-10-28 15:55 | DRSVH ---
PROCEDURE: CT BRAIN WITHOUT CONTRAST ([id number]) INDICATIONS: fall, hit head, on warfarin TECHNIQUE: Noncontrast 4.5 mm thick angled axial sections acquired from the foramen magnum to the vertex, with c oronal reformats. COMPARISON: [facility], CT, BRAIN W/O CONTRAST, 01/09/2011, 15:10. FINDINGS: Image quality: Excellent. CSF spaces: Basal cisterns are patent. No extra-axial fluid collections. The ventricles are symmet jesse in size and shape. Brain: No intracranial bleeds or masses. There is cerebral volume loss for age, with resultant vent ricular and sulcal prominence. There are periventricular and deep white matter chronic small vessel ischemic changes. There is intracranial internal carotid artery atherosclerosis. Skull and face: Calvarium and visualized facial bones appear intact, without suspicious lesions. Sinuses: Visualized sinuses and mastoids are clear. IMPRESSION: Normal for age, no trauma found. No intracranial hemorrhage identified. Dictated by: Rey Echavarria M.D. on 10/28/2016 at 15:54 Approved by: Rey Echavarria M.D. on 10/28/2016 at 15:54
--- NOTE | 2016-10-28 15:57 | DRSVH ---
PROCEDURE: CT CERVICAL SPINE WITHOUT CONTRAST ([id number]) INDICATIONS: fall, hit head, neck pain TECHNIQUE: Noncontrast 3 mm thick sections acquired from the skull base to the T4 level. Sagittal and coronal r eformats were then constructed. For radiation dose reduction, the following was used: automated exp osure control, adjustment of mA and/or kV according to patient size. COMPARISON: None. FINDINGS: Image quality: Excellent. Bones: No fractures or dislocations. Visualized superior ribs are intact. There is a moderate degr ee of degenerative disc disease and chronic posterior disc bulging at C5-6 and C6-7. No traumatic shaffer bluxation is suspected. Soft tissues: Prevertebral soft tissues are normal in thickness. No paravertebral hematomas. No ap ical pneumothoraces. IMPRESSION: No trauma found. Chronic moderate degenerative disc disease over C5-6 and C6-7 with asso ciated mild/moderate spinal stenosis at that level. No epidural or subdural hemorrhage within the th ecal sac is seen. Dictated by: Rey Echavarria M.D. on 10/28/2016 at 15:54 Approved by: Rey Echavarria M.D. on 10/28/2016 at 15:56
[2016-10-28 16:45] VITALS: BP 117/53; PULSE 54; RESP 15; O2SAT 53
[2016-10-28 17:31] VITALS: BP 110/54; PULSE 56; RESP 13; O2SAT 93
[2016-10-28 17:39] VITALS: BP 110/54; PULSE 56; RESP 13; O2SAT 93
== END 2016-10-28 17:39 | disposition home or self-care (01) ==
LOC: SED 14:23
DX: S06.0X0A Concussion without loss of consciousness, initial encounter (principal); M89.9 Disorder of bone, unspecified; W17.89XA Other fall from one level to another, initial encounter; Y93.89 Activity, other specified; Y92.000 Kitchen of unspecified non-institutional (private) residence as the place of occurrence of the external cause; Y99.8 Other external cause status; I11.0 Hypertensive heart disease with heart failure; I50.9 Heart failure, unspecified; Z86.711 Personal history of pulmonary embolism; Z85.3 Personal history of malignant neoplasm of breast; Z79.01 Long term (current) use of anticoagulants; Z90.710 Acquired absence of both cervix and uterus; Z88.0 Allergy status to penicillin

== ENCOUNTER → 2016-11-11 | Day surgery (SDC) | payer MEDICARE ==
[~2016-11-11] VITALS: Ht 154.9 cm; Wt 77.1 kg
[~2016-11-11] MED LIST changes: +0.9% Sodium Chloride 1,000 ML IV PRN; +Sodium Chloride LOK Flush 10 mL Syringe IV PRN; +fentaNYL-PF 50 mCg/mL 2 mL Inj IVPUSH PRN
[2016-11-11 08:59] VITALS: BP 124/63; PULSE 55; RESP 14; O2SAT 96
[2016-11-11 10:56] VITALS: BP 103/41; PULSE 64; RESP 16; O2SAT 97
[2016-11-11 11:06] VITALS: BP 105/45; PULSE 62; RESP 16; O2SAT 96
[2016-11-11 11:14] VITALS: BP 106/65; PULSE 64; RESP 16; O2SAT 93
--- NOTE | 2016-11-11 11:29 | ENDO ---
[address] [address] ENDOSCOPY PROCEDURE PATIENT: CRISTIAN ISAACS : 1935 MR#: [id number] ADMIT: 11/11/2016 JOB ID: [id number] DATE: 11/11/2016 PRIMARY PROVIDER: Melissa Cortez. PROCEDURE: Colonoscopy with hot snare polypectomy and cold forceps biopsies. INDICATIONS: A 81-year-old female who reports new onset diarrhea. At this point, it is chronic. EQUIPMENT: PCF H 180 AL. SEDATION: 1. 5 mg Versed. 2. 100 mcg fentanyl. COMPLICATIONS: None identified. BOWEL PREPARATION: Fair, adequate examination. PROCEDURAL INFORMATION: After the risks and benefits were explained, written and verbal informed consent was obtained. The patient was brought into the endoscopy suite and placed into the left lateral decubitus position. Sedation was achieved as above. A digital rectal examination accomplished. Disclosed moderate internal, external, nonbleeding, nonthrombosed hemorrhoids. No other significant pathology was appreciated. The scope was introduced into the rectum and advanced to the cecum. The terminal ileum was briefly accessed. The scope then slowly withdrawn to carefully examine the mucosa for any defects or lesions. Multiple direct views were made through the dentate line for exclusion of pathology. The colon was decompressed. The scope removed from the patient who tolerated the procedure well. FINDINGS: The terminal ileum appeared visually normal. There was an approximately 6 mm sessile polyp in the ascending colon removed with hot snare. No obvious macroscopic colitis was identified throughout. There was perhaps a very subtle nonspecific erythematous hue to the mucosa all throughout the left colon. Random biopsies through this region were obtained for exclusion of microscopic colitis. ENDOSCOPIC DIAGNOSIS: Gastroduodenopathy. 1. Colon polyp. 2. Hemorrhoids. RECOMMENDATIONS: 1. Await histopathology. 2. The patient inadvertently halted her Coumadin five days ago even though I had recommended she stay on it for today's examination. She is encouraged to restart it this evening. 3. Repeat colonoscopy can be considered for five years. 4. If microscopic colitis is identified, I would recommend perhaps a course of budesonide.
--- NOTE | 2016-11-13 16:28 | PATH ---
SURGICAL PATHOLOGY Attending Physician:Ana Laura Dickson CASE STATUS: Signed Out PATIENT NAME: CRISTIAN ISAACS PID: [id number] : 1935 DATE COLLECTED:11/11/2016 21:55 SPECIMEN: 1: Colon, Polyp 2: Colon, Biopsy CLINICAL HISTORY: 1). ASCENDING COLON POLYP 2). RANDOM COLON BIOPSY FINAL DIAGNOSIS: 1. Ascending Colon Polyp, Polypectomy: Tubular adenoma. 2. Random Colon, Biopsy: Lymphocytic colitis. ICD10: D12.2 K52.89 GROSS DESCRIPTION: The specimen is received in two formalin filled containers labeled with the patient's name. 1). The specimen is labeled "ascending colon polyp" and consists of a 0.1 x 0.1 x 0.1 CM portion of tissue which is entirely submitted in cassette 1A. 2). The specimen is labeled "random colon" and consists of 3 tiny portions of tissue which aggregate to 0.1 x 0.1 x 0.1 CM. The specimen is entirely submitted in cassette 2A. 11/11/2016DC ICD-9 CODES: CPT CODES: 1: 12124 2: 46883 Electronically Signed Out Avelino Brown MD, Ph.D. [facility] Pathology [facility] [address], [place] [address] Technical component performed at [facility], [facility] [address], [place], [address]
== END | disposition home or self-care (01) ==
LOC: END 08:26
PROVIDERS: ATTEND Internal Medicine Gastroenterology
DX: K52.832 Lymphocytic colitis (principal); D12.2 Benign neoplasm of ascending colon; G47.33 Obstructive sleep apnea (adult) (pediatric); J44.9 Chronic obstructive pulmonary disease, unspecified; M79.7 Fibromyalgia; J45.909 Unspecified asthma, uncomplicated; I10 Essential (primary) hypertension; K21.9 Gastro-esophageal reflux disease without esophagitis; Z79.01 Long term (current) use of anticoagulants
CPT/HCPCS: 45380; 45385; 88305; 99153; G0500; J2250; J3010; J7030